=== PATIENT | male | born 1990 | race Caucasian/White ===

== ENCOUNTER 2017-08-31 15:23 | Emergency (ER) | payer BC ==
[~2017-08-31] VITALS: Ht 170.2 cm; Wt 88.0 kg
[~2017-08-31 15:23] MED LIST: AMBI5TAB PO; Z.0.NO CURRENT MEDS
[2017-08-31 15:35] VITALS: BP 129/70; PULSE 109; RESP 16; TEMP 97.9; O2SAT 99
[2017-08-31] MEDS ORDERED: GINK60TA10 PO (16:14)
[2017-08-31] MEDS ORDERED: SERT-132 PO (16:14)
[2017-08-31] MEDS ORDERED: BUSP15TA PO (16:14)
[2017-08-31] MEDS ORDERED: MIRT30TA PO (16:14)
[2017-08-31] MEDS ORDERED: CARB100C CHEW (16:14)
[2017-08-31] MEDS ORDERED: MULTTAB67 PO (16:14)
[2017-08-31] MEDS ORDERED: SODIUM CHLOR 0.9% 1000 ML INJ 1,000 ML IV SCH (16:34)
--- NOTE | 2017-08-31 16:34 | PD ---
HPI Chief Complaint: GI Complaint Time Seen by Provider: 16:31 Travel History International Travel<30 days: No Contact w/Intl Traveler<30days: No Traveled to known affect area: No History of Present Illness HPI Patient complains of nausea vomiting ongoing since this morning. Last normal meal was last night for dinner. Patient currently denies any associated factors such as fever, rash, diarrhea, abdominal pain, chest pain, back pain, headache. No alleviating factors however aggravated by eating or drinking anything. No known drug allergy Past medical and surgical history significant for bipolar disorder. Patient is on Tegretol sertraline and BuSpar PFSH Past Medical History Bipolar Disorder: Yes Depression: Yes Diminished Hearing: No Influenza Vaccination: No Social History Alcohol Use: No Tobacco Use: No Substance Use: No Allergies-Medications (Allergen,Severity, Reaction): Coded Allergies: No Known Allergies (Verified Adverse Reaction, Unknown, 08/31/17) Reported Meds & Prescriptions Reported Meds & Active Scripts Active Reported Multiple Vitamin 1 Tab 1 Tab PO DAILY Ginkgo Biloba (Ginkgo Biloba [place] Extract) 60 Mg Tablet 1 Tab PO DAILY Sertraline (Sertraline HCl) 50 Mg Tab 50 Mg PO DAILY Mirtazapine 30 Mg Tab 30 Mg PO HS Carbamazepine 100 Mg Chew 300 Mg CHEW BID Buspirone (Buspirone HCl) 15 Mg Tab 15 Mg PO BID Review of Systems General / Constitutional: No: Fever Eyes: No: Visual changes HENT: No: Headaches Cardiovascular: No: Chest Pain or Discomfort Respiratory: No: Shortness of Breath Gastrointestinal: Positive: Nausea, Vomiting Genitourinary: No: Dysuria Musculoskeletal: No: Pain Skin: No Rash Neurologic: No: Weakness Psychiatric: No: Depression Endocrine: No: Polydipsia Hematologic/Lymphatic: No: Easy Bruising Physical Exam Narrative GENERAL: SKIN: Warm and dry. HEAD: Atraumatic. Normocephalic. EYES: Pupils equal and round. No scleral icterus. No injection or drainage. ENT: No nasal bleeding or discharge. Mucous membranes pink and moist. NECK: Trachea midline. No JVD. CARDIOVASCULAR: Regular rate and rhythm. RESPIRATORY: No accessory muscle use. Clear to auscultation. Breath sounds equal bilaterally. GASTROINTESTINAL: Abdomen soft, non-tender, nondistended. MUSCULOSKELETAL: Extremities without clubbing, cyanosis, or edema. No obvious deformities. NEUROLOGICAL: Awake and alert. No obvious cranial nerve deficits. Motor grossly within normal limits. Five out of 5 muscle strength in the arms and legs. Normal speech. PSYCHIATRIC: Appropriate mood and affect; insight and judgment normal. Data Data Last Documented VS Vital Signs Date Time Temp Pulse Resp B/P (MAP) Pulse Ox O2 Delivery O2 Flow Rate FiO2 08/31/17 18:13 103 18 140/72 (94) 100 Room Air 08/31/17 15:35 97.9 Orders Orders Complete Blood Count With Diff (08/31/17 16:34) Comprehensive Metabolic Panel (08/31/17 16:34) Lipase (08/31/17 16:34) Urinalysis - C+S If Indicated (08/31/17 16:34) Iv Access Insert/Monitor (08/31/17 16:34) Ecg Monitoring (08/31/17 16:34) Oximetry (08/31/17 16:34) NPO (08/31/17 16:34) Morphine Inj (Morphine Inj) (08/31/17 16:45) Ondansetron Inj (Zofran Inj) (08/31/17 16:45) Sodium Chlor 0.9% 1000 Ml Inj (Ns 1000 M (08/31/17 16:34) Sodium Chloride 0.9% Flush (Ns Flush) (08/31/17 16:45) Ct Abd/Pel W/O Iv Contrast (08/31/17 17:01) Labs Laboratory Tests Test 08/31/17 16:20 08/31/17 17:25 White Blood Count 17.0 TH/MM3 Red Blood Count 5.47 MIL/MM3 Hemoglobin 17.0 GM/DL Hematocrit 48.3 % Mean Corpuscular Volume 88.3 FL Mean Corpuscular Hemoglobin 31.1 PG Mean Corpuscular Hemoglobin Concent 35.2 % Red Cell Distribution Width 13.2 % Platelet Count 240 TH/MM3 Mean Platelet Volume 8.2 FL Neutrophils (%) (Auto) 87.3 % Lymphocytes (%) (Auto) 2.7 % Monocytes (%) (Auto) 6.0 % Eosinophils (%) (Auto) 0.0 % Basophils (%) (Auto) 4.0 % Neutrophils # (Auto) 14.8 TH/MM3 Lymphocytes # (Auto) 0.5 TH/MM3 Monocytes # (Auto) 1.0 TH/MM3 Eosinophils # (Auto) 0.0 TH/MM3 Basophils # (Auto) 0.7 TH/MM3 CBC Comment DIFF FINAL Differential Comment Blood Urea Nitrogen 20 MG/DL Creatinine 0.88 MG/DL Random Glucose 161 MG/DL Total Protein 8.2 GM/DL Albumin 4.1 GM/DL Calcium Level 9.1 MG/DL Alkaline Phosphatase 88 U/L Aspartate Amino Transf (AST/SGOT) 14 U/L Alanine Aminotransferase (ALT/SGPT) 21 U/L Total Bilirubin 0.4 MG/DL Sodium Level 138 MEQ/L Potassium Level 3.9 MEQ/L Chloride Level 106 MEQ/L Carbon Dioxide Level 22.7 MEQ/L Anion Gap 9 MEQ/L Estimat Glomerular Filtration Rate 102 ML/MIN Lipase 152 U/L Urine Color YELLOW Urine Turbidity CLEAR Urine pH 8.5 Urine Specific [place] 1.015 Urine Protein TRACE mg/dL Urine Glucose (UA) NEG mg/dL Urine Ketones TRACE mg/dL Urine Occult Blood NEG Urine Nitrite NEG Urine Bilirubin NEG Urine Urobilinogen 0.2 MG/DL Urine Leukocyte Esterase NEG Urine WBC 0-2 /hpf Urine Squamous Epithelial Cells 0-5 /hpf Microscopic Urinalysis Comment CULT NOT INDICATED MDM Medical Decision Making Medical Screen Exam Complete: Yes Emergency Medical Condition: Yes Medical Record Reviewed: Yes Differential Diagnosis Gastroenteritis versus pancreatitis versus hepatitis versus electrolyte abnormality Narrative Course CBC shows leukocytosis of 17,000 with 87% neutrophilia. No anemia, normal platelet count. UA is negative for any evidence of UTI Complete metabolic profile shows normal electrolytes, normal kidney function normal liver function normal lipase. CT abdomen pelvis reveals mild distention of the stomach nondilated loops of small or large bowel per radiologist. Diagnosis Primary Impression: Bacterial gastroenteritis Patient Instructions: Gastroenteritis (ED), General Instructions Scripts Ondansetron Odt (Zofran Odt) 4 Mg Tab 4 MG SL Q6HR Y for Nausea/Vomiting, #20 TAB 0 Refills Prov: Jimmy Saavedra MD 08/31/17 Codeine-Acetaminophen (Codeine-Acetaminophen) 30-300 mg Tab 1 TAB PO Q4H Y for PAIN, #14 TAB 0 Refills Prov: Jimmy Saavedra MD 08/31/17 Metronidazole (Flagyl) 500 Mg Tab 500 MG PO TID for Infection for 7 Days, TAB 0 Refills Prov: Jimmy Saavedra MD 08/31/17 Ciprofloxacin (Cipro) 500 Mg Tab 500 MG PO BID for Infection for 5 Days, #10 TAB 0 Refills Prov: Jimmy Saavedra MD 08/31/17 Disposition: 01 DISCHARGE HOME Condition: Stable Jimmy Saavedra MD Aug 31, 2017 16:34
[2017-08-31] MEDS ORDERED: SODIUM CHLORIDE 0.9% FLUSH 10 ML FLUSH IV FLUSH PRN (16:45)
[2017-08-31] MEDS ORDERED: MORPHINE SULFATE 4 MG/ML INJ IV PUSH ONE (16:45)
[2017-08-31] MEDS ORDERED: ONDANSETRON HCL 4 MG/2 ML VIAL IVP ONE (16:45)
[2017-08-31 16:46] LABS: AUTOMATED NEUTROPHIL # 14.8 TH/MM3 (1.8-7.7); BASOPHIL # 0.7 TH/MM3 (0-0.2); HEMATOCRIT 48.3 % (39.0-51.0); LYMPH % 2.7 % (9.0-44.0); LYMPHOCYTE # 0.5 TH/MM3 (1.0-4.8); MEAN CELL VOLUME 88.3 FL (80.0-100.0); MEAN CORPUSCULAR HEMOGLOBIN 31.1 PG (27.0-34.0); MEAN CORPUSCULAR HGB CONC 35.2 % (32.0-36.0); MEAN PLATELET VOLUME 8.2 FL (7.0-11.0); NEUT % 87.3 % (16.0-70.0); PLATELET COUNT 240 TH/MM3 (150-450); RED BLOOD COUNT 5.47 MIL/MM3 (4.50-5.90); RED CELL DISTRIBUTION WIDTH 13.2 % (11.6-17.2)
[2017-08-31 16:54] LABS: CHLORIDE 106 MEQ/L (98-107); SODIUM (NA) 138 MEQ/L (136-145)
[2017-08-31 16:58] LABS: ALBUMIN 4.1 GM/DL (3.4-5.0); BICARBONATE 22.7 MEQ/L (21.0-32.0); BLOOD UREA NITROGEN 20 MG/DL (7-18); CALCIUM 9.1 MG/DL (8.5-10.1); GLUCOSE,RANDOM 161 MG/DL (74-106)
[2017-08-31 17:00] VITALS: BP 133/69; PULSE 99; RESP 18; O2SAT 99
[2017-08-31 17:01] LABS: ALT (GPT) 21 U/L (12-78); AST (GOT) 14 U/L (15-37); CREATININE 0.88 MG/DL (0.60-1.30); GLOMERULAR FILTRATION RATE 102 ML/MIN (>89)
[2017-08-31 17:03] LABS: TOTAL BILIRUBIN ADULT 0.4 MG/DL (0.2-1.0); TOTAL PROTEIN 8.2 GM/DL (6.4-8.2)
[2017-08-31 17:04] LABS: ALKALINE PHOSPHATASE 88 U/L (45-117)
[2017-08-31 17:34] LABS: BILIRUBIN, URINE NEG (NEG); BLOOD, URINE NEG (NEG); GLUCOSE,URINE NEG (NEG); KETONE, URINE TRACE mg/dL (NEG); NITRITE,URINE NEG (NEG); PH, URINE 8.5 (5.0-8.5); URINE COLOR YELLOW (YELLW/STRAW); URINE LEUKOCYTE ESTERASE NEG (NEG)
[2017-08-31 17:48] LABS: SQUAMOUS EPITHELIAL CELL URINE 0-5 /hpf (0-5); WBC, URINE 0-2 /hpf (0-5)
[2017-08-31 18:13] VITALS: BP 140/72; PULSE 103; RESP 18; O2SAT 100
--- NOTE | 2017-08-31 18:43 | RADRPT ---
EXAM DATE/TIME: 08/31/2017 18:03 [facility] COMPARISON: No previous studies available for comparison. INDICATIONS : Lower abdominal pain with nausea and vomiting. ORAL CONTRAST: No oral contrast ingested. RADIATION DOSE: 17.64 CTDIvol (mGy) MEDICAL HISTORY : None SURGICAL HISTORY : None. ENCOUNTER: Initial ACUITY: 1 day PAIN SCALE: 5/10 LOCATION: Bilateral lower quadrant abdomen TECHNIQUE: Volumetric scanning of the abdomen and pelvis was performed. Using automated exposure control and ad justment of the mA and/or kV according to patient size, radiation dose was kept as low as reasonably achievable to obtain optimal diagnostic quality images. DICOM format image data is available electro nically for review and comparison. FINDINGS: LOWER LUNGS: The visualized lower lungs are clear. LIVER: Homogeneous density without lesion for noncontrast technique. There is no dilation of the biliary tr ee. No calcified gallstones. SPLEEN: Normal size without lesion. PANCREAS: Within normal limits. KIDNEYS: Normal in size and shape. There is no mass, stone, or hydronephrosis. ADRENAL GLANDS: Within normal limits. VASCULAR: There is no aortic aneurysm. BOWEL/MESENTERY: The stomach is mildly distended and fluid-filled. No dilated loops of small or large bowel. The sharon endix is identified, located inferior to the cecum, and has a normal configuration. ABDOMINAL WALL: Within normal limits. RETROPERITONEUM: There is no lymphadenopathy. BLADDER: No wall thickening or mass. REPRODUCTIVE: Within normal limits. INGUINAL: There is no lymphadenopathy or hernia. 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 CONCLUSION: No distention of the stomach. No dilated loops of small or large bowel. Balta Jay MD on August 31, 2017 at 18:35 Board Certified Radiologist. This report was verified electronically.
[2017-08-31] MEDS ORDERED: CIPR-9 PO (19:12)
[2017-08-31] MEDS ORDERED: CODE30TA2 PO (19:12)
[2017-08-31] MEDS ORDERED: ZOFR4TAB3 SL (19:12)
[2017-08-31] MEDS ORDERED: METR-1 PO (19:12)
[2017-08-31 19:35] VITALS: BP 131/66
== END 2017-08-31 19:40 | disposition home or self-care (01) ==
LOC: PHED 15:23
DX: K52.89 Other specified noninfective gastroenteritis and colitis (principal); D72.829 Elevated white blood cell count, unspecified; F31.9 Bipolar disorder, unspecified; Z79.899 Other long term (current) drug therapy
CPT/HCPCS: 74176; 80053; 81001; 83690; 85025; 96361; 96374; 96375; 99284; J2270; J2405; J7030